=== PATIENT | female | born 1960 | race Two or more races ===

== ENCOUNTER 2025-01-14 08:14 | Inpatient (IN) | payer OTHER ==
[~2025-01-14] VITALS: Ht 154.9 cm; Wt 100.7 kg
[~2025-01-14 08:14] MED LIST: CARV6.2551 PO; DILT-29 PO; FLUO20TA42 PO; GABA-1250 PO; HYDR-4491 OR; HYDR-4798 PO; IRONTAB33 OR; LANS30TA3 PO; LEFL20TA PO; MELA3TAB27 PO; TOFA1TAB PO
[2025-01-14] MEDS ORDERED: MORPHINE SULFATE INJ 2 MG/ml SYRG IV PRN (13:00)
[2025-01-14] MEDS ORDERED: HYDROmorphone HCL 2 MG/ML VL/or syr IV PRN ×2 (13:00→14:30)
[2025-01-14] MEDS ORDERED: NITROGLYCERIN 0.4 MG SL TAB SL PRN (13:00)
[2025-01-14] MEDS: ceFAZolin 2 GM/D5W50ml 50 ML IV ONE (13:30)
[2025-01-14] MEDS: CEFEPIME 1GM/ 50ML 50 ML IV ONE (13:30)
[2025-01-14] MEDS: BUPIVACAINE HCL 0.25% P/F 10 ML VIAL ONE (14:10)
[2025-01-14 14:14] VITALS: PULSE 80; RESP 16
[2025-01-14] MEDS ORDERED: ONDANSETRON HCL 4 MG/2 ML VIAL IV ONE (14:30)
[2025-01-14] MEDS ORDERED: KETOROLAC TROMETH 30 MG/ML 1ML VIAL IV ONE (14:30)
--- NOTE | 2025-01-14 15:37 | DVH ---
C-ARM FLUOROSCOPY: PROCEDURE: ORIF left tib/fib FLUOROSCOPY TIME: 45.1 sec DAP: 1.40 mgy FINDINGS: Spot intraoperative C arm radiographs demonstrating orif left tib/fib. IMPRESSION: Please refer to surgical report for detailed findings.
[2025-01-14] MEDS: OXYCODONE W/ ACETAMINOPHEN 5/325MG TABLET PO PRN (17:49)
[2025-01-14 19:14] VITALS: PULSE 92; RESP 19; O2SAT 97
[2025-01-14] MEDS ORDERED: LANS15TA2 PO (19:18)
[2025-01-14 20:00] VITALS: PULSE 92; RESP 19; O2SAT 97
[2025-01-14 21:00] VITALS: BP 136/70; PULSE 92; RESP 19; TEMP 98.2; O2SAT 97
[2025-01-14] MEDS: oxyCODONE ER 10 MG TAB PO SCH (21:47)
[2025-01-14] MEDS: SODIUM CHLOR 0.9% PF (SALINE LOCK) 10ML VIAL/SYR IV SCH (21:51)
[2025-01-14] MEDS: LACTATED RINGER'S 1,000 ML IV SCH (21:55)
[2025-01-14] MEDS: ceFAZolin 1GM/50ML 50 ML IV SCH (23:30)
[2025-01-15] VITALS (8 sets, daily range): BP systolic 108–137; BP diastolic 63–76; PULSE 54–90; RESP 18–20; TEMP 97.9–98.5; O2SAT 93–98
[2025-01-15 07:48] LABS: Basophils # (auto) 0 10 ^3/uL (0-0.2); Basophils % (auto) 0.1 % (0.0-2.0); Eosinophils # (auto) 0 10 ^3/uL (0-0.8); Hematocrit 31.7 % (36.0-46.0); Hemoglobin 10.5 g/dL (12.2-16.2); Lymphocytes # (auto) 0.5 10 ^3/uL (0.4-5.4); Lymphocytes % (auto) 3.7 % (10.0-50.0); Mean Corpuscular Volume 84.9 fL (80.0-100.0); Monocytes # (auto) 1.1 10 ^3/uL (0-1.3); Neutrophils # (auto) 12.2 10 ^3/uL (1.6-8.6); Neutrophils % (auto) 88.2 % (37.0-80.0); Platelet Count (auto) 417 10^3/uL (140-450); Red Blood Cells 3.73 10^6/uL (4.0-5.20); Red Cell Distribution Width 13.7 % (11.8-14.3); White Blood Cell 13.8 10^3/uL (4.4-10.8)
[2025-01-15 07:59] LABS: Anion Gap 8 (5-15); Potassium 3.8 mmol/L (3.5-5.1); Sodium 137 mmol/L (136-145)
[2025-01-15 08:00] LABS: Calcium 9.5 mg/dL (8.7-10.4)
[2025-01-15 08:05] LABS: BUN/Creatinine Ratio 12.3 (10.0-20.0)
[2025-01-15 08:08] LABS: Blood Urea Nitrogen 7 mg/dL (9-23); Carbon Dioxide 31 mmol/L (20-31); Chloride 98 mmol/L (98-107); Glucose 150 mg/dL (74-106)
[2025-01-15] MEDS ORDERED: ENOXAPARIN SOD 40 MG/0.4 ML SYRINGE SC SCH (10:00)
[2025-01-15] MEDS: ENOXAPARIN SOD 40 MG/0.4 ML SYRINGE SC SCH (10:40)
--- NOTE | 2025-01-15 16:18 | DVHPN2 ---
Progress Note Date Seen: January 15, 2025 Medical Necessity Reason Pt with a Central, PICC or Fol: No Subjective Patient reports: No new complaints Objective vital signs Vital Sign Date Time Temp Pulse Resp B/P (MAP) Pulse Ox O2 Delivery O2 Flow Rate FiO2 01/15/25 12:55 98.3 75 20 122/69 (86) 97 98.3 01/15/25 08:00 Nasal Cannula* 2 28 Total Intake and Output 01/14/25 01/14/25 01/15/25 15:00 23:00 07:00 Intake Total 1200 ml 660 ml Balance 1200 ml 660 ml medications Current Medications Medications Dose Ordered Sig/Bethany Route Start Time Stop Time Status Last Admin Dose Admin Lactated Ringer's 1,000 ml @ 100 mls/hr Q10H IV 01/14/25 13:00 01/15/25 12:36 100 MLS/HR Sodium Chloride 10 ml Q8HR IV 01/14/25 14:00 01/15/25 15:10 10 ML Oxycodone/ Acetaminophen 1 tab Q4HP PRN PO 01/14/25 13:00 01/15/25 12:34 1 TAB Hydromorphone HCl 1 mg Q2HP PRN IV 01/14/25 13:00 Oxycodone HCl 10 mg Q12HR PO 01/14/25 22:00 01/15/25 10:41 10 MG Nitroglycerin 0.4 mg Q5MINP PRN SL 01/14/25 13:00 Morphine Sulfate 2 mg Q30M PRN IV 01/14/25 13:00 Enoxaparin Sodium 40 mg DAILY SC 01/15/25 10:00 01/15/25 10:40 40 MG Examination: GENERAL:Normal, MSK:Abnormal laboratory and microbiology Laboratory Tests 01/15/25 06:52 Test 01/15/25 06:52 Range/Units Serum Glucose 150 H 74-106 mg/dL Problem List/Assessment/Plan Problem List/Assessment/Plan 64 year old female who is s/p ORIF left tibia POD 1 1. Pain control 2. NWB LLE 3. Continue with cam boot 4. will begin planning for SNF as requested by patient/ prior to surgery 5. has follow up in [address] Penaloza scheduled Plan discussed with: Patient Date of Service: January 15, 2025 Billing Provider: KJ PENALOZA MD Common Visit Codes: NOT BILLABLE MARCY HERNANDEZ NP January 15, 2025 16:18
--- NOTE | 2025-01-15 16:20 | DVHDS2 ---
Discharge Summary Date of Admission January 14, 2025 at 12:59 Date of Discharge: January 14, 2025 Admitting Diagnosis left tibia fracture Wounds: aquacel dressings to remain intact until first postop visit in two weeks Labs/Diagnostic Data: Laboratory Results Test 01/15/25 06:52 White Blood Count 13.8 10^3/uL (4.4-10.8) Red Blood Count 3.73 10^6/uL (4.0-5.20) Hemoglobin 10.5 g/dL (12.2-16.2) Hematocrit 31.7 % (36.0-46.0) Mean Corpuscular Volume 84.9 fL (80.0-100.0) Mean Corpuscular Hemoglobin 28.0 pg (28.0-32.0) Mean Corpuscular Hemoglobin Concent 33.0 g/dL (32.0-36.0) Red Cell Distribution Width 13.7 % (11.8-14.3) Platelet Count 417 10^3/uL (140-450) Mean Platelet Volume 8.3 fL (6.9-10.8) Neutrophils (%) (Auto) 88.2 % (37.0-80.0) Lymphocytes (%) (Auto) 3.7 % (10.0-50.0) Monocytes (%) (Auto) 8.0 % (0.0-12.0) Eosinophils (%) (Auto) 0.0 % (0.0-7.0) Basophils (%) (Auto) 0.1 % (0.0-2.0) Neutrophils # (Auto) 12.2 10 ^3/uL (1.6-8.6) Lymphocytes # (Auto) 0.5 10 ^3/uL (0.4-5.4) Monocytes # (Auto) 1.1 10 ^3/uL (0-1.3) Eosinophils # (Auto) 0 10 ^3/uL (0-0.8) Basophils # (Auto) 0 10 ^3/uL (0-0.2) Nucleated Red Blood Cells 0.0 % Sodium Level 137 mmol/L (136-145) Potassium Level 3.8 mmol/L (3.5-5.1) Chloride Level 98 mmol/L (98-107) Carbon Dioxide Level 31 mmol/L (20-31) Anion Gap 8 (5-15) Blood Urea Nitrogen 7 mg/dL (9-23) Creatinine 0.57 mg/dL (0.550-1.02) Glomerular Filtration Rate Calc 103 mL/min (>90) BUN/Creatinine Ratio 12.3 (10.0-20.0) Serum Glucose 150 mg/dL (74-106) Calcium Level 9.5 mg/dL (8.7-10.4) Other Laboratory Tests 01/15/25 06:52 Brief Hx & Hospital Course: s/p tibial nailing Condition at Discharge: Good Final Diagnosis/Problems List Left tibia fracture Discharge Disposition: [facility] Facility Discharge Instruct/Medications Diet: Cardiac 2g Na,low cholest, See Comment Diet comment: may advance diet as tolerated Activity: See Comment Activity comment: NWChristo LLE Follow Up/Referral: Dr. Penaloza in 2 weeks Medications: resume normal medications along with pain and DVT ppx Discharge Statement: "Patient was advised to return to the ER or call 911 if any headaches, dizziness, shortness of breath, chest pain, abdominal pain, bleeding, fevers, or worsening of medical condition. Patient was counseled about treatment plan, medications, possible side effects, patientverbalized understanding. All questions were answered to the best of my ability. This discharge took greater then 30 minutes in planning, reviewing documentation, counseling the patient, and discussing with other team members." ASSESSMENT ASSESSMENT Assessment Left tibia fracture MARCY HERNANDEZ NP January 15, 2025 16:20
[2025-01-15] MEDS: CARVEDILOL 3.125 MG TAB PO ONE (21:03)
[2025-01-15] MEDS: MELATONIN 5 MG TAB PO ONE (21:03)
[2025-01-16 01:00] VITALS: BP 137/79; PULSE 88; RESP 18; TEMP 98; O2SAT 98
[2025-01-16 05:00] VITALS: BP 137/72; PULSE 98; RESP 18; TEMP 98; O2SAT 99
[2025-01-16 08:00] VITALS: RESP 19; O2SAT 97
[2025-01-16 09:00] VITALS: BP 134/59; PULSE 91; RESP 18; TEMP 98.1; O2SAT 95
--- NOTE | 2025-01-16 12:13 | DVHOP2 ---
Operative Report - 2 Report Details Date: 01/14/25 Preop Diagnosis: Left distal tibia/fibula fracture Postop Diagnosis: Left distal tibia/fibula fracture Surgeon: Greg Penaloza MD Dispatcher Clerk: Nicola WAYNE Anesthesiologist: Sesar GALLARDO Anesthesia: Regional Implant: AAP tibia nail Consent: The patient was informed of the risks and benefits of the procedure. These include but are not limited to complications of anesthesia, postoperative infection, incomplete relief of symptoms, recurrence of symptoms, damage to blood vessels, nerves and tendons, deep venous thrombosis, pulmonary embolism and possible need for repeat surgery in the future. Estimated Blood Loss: 5 cc Name of Procedure Performed Open reduction internal fixation of left tibia fracture; intraop fluoro Procedure Details Procedure Details: In the preoperative holding area, the consent was reviewed and the appropriate extremity was verified by the patient and marked with my initials. The patient was then transferred to the operating theatre. Appropriate anesthesia was induced. All bony prominences were well padded. A time out was performed verifying the side and site of surgery according to standard protocol. Preoperative antibiotics were given. Risks/benefits/options and alternatives were reviewed in depth with patient and his girlfriend. Patient and family understand this. Risks include but not limited to bleeding, infection, nerve injury, hardware failure, malunion, nonunion, chronic pain, stiffness, amputa tion, deep venous thrombosis and . A right pneumatic thigh tourniquet was placed about the patient's thigh. The lower extremity was then scrubbed, prepped and draped in the usual aseptic manner. The lower extremity was elevated and exsanguinated using an Esmarch bandage. The tourniquet was then inflated. Attention was then directed to the standard superior tibial nail technique. We made a 4 cm incision over the quadriceps tendon, paratenon was split with layer kept intact, we then split quadriceps. Using fluoro, we had correct start point with our entry pin on AP and lateral xray. We then put our starter reamer in place. We used manual reduction techniques in addition to to a stab incision at fracture site to help the reduction as she has a spiral fracture. We gentle reamed up to a 11.5. We then placed a 10 tibial AOS nail. We did two static screw and locking screw proximally fluroscopy. Screws were deemed proper length. We placd distal screw under fluoro guidance. The tourniquet was deflated and prompt hemostasis was achieved. Local injection of lidocaine and marcaine plain was injected. The area was then copiously flushed with normal sterile saline and closed in a layered fashion utilizing 2-0 Vicryl and a 3-0 nylon. Dressings were then applied consisting of Adaptic, 4 x 4s, Dylan, Kerlix and sterile Webril. Next, a multi-layer dressing consisting of cast padding and Shimon bandages were placed about to the patient's left leg distal to the patient's knee. A 5 inch posterior fiberglass splint was placed along the patient's posterior right leg with care taken to keep the foot at 90 degrees. Also, a U- shaped 4-inch fiberglass splint was placed from medial to lateral in a stirrup fashion for additional support. Additional Shimon bandages were placed over the fiberglass splint to keep them in place. Calf was soft and compressible after surgery. Condition Good Disposition Still a Patient GREG PENALOZA MD January 16, 2025 12:13
[2025-01-16 13:00] VITALS: BP 134/59; PULSE 91; RESP 18; TEMP 98.1; O2SAT 95
[2025-01-16 14:17] VITALS: BP 132/79; PULSE 88; TEMP 36.7
== END 2025-01-16 15:03 | disposition home or self-care (01) | DRG 494 ==
LOC: SUR 08:14 → OVERFLOW 12:59 → UNDOADMOB 12:59 → OVERFLOW 17:02 → WEST WING 19:04 → INTOOBSV 01-16 14:11 → OBSVTOIN 01-16 14:11 → OVERFLOW 01-16 15:03 → UNDODISIN 01-16 15:03 → UNDOADMIN 01-16 15:03
PROVIDERS: ADMIT Orthopaedic Surgery Adult Reconstructive Orthopaedic Surgery; ATTEND Orthopaedic Surgery Adult Reconstructive Orthopaedic Surgery
PROC: 0QSH04Z Reposition Left Tibia with Internal Fixation Device, Open Approach (ICD-10-PCS; principal; 2025-01-14 13:11)
DX: S82.302A Unspecified fracture of lower end of left tibia, initial encounter for closed fracture (principal); S82.832A Other fracture of upper and lower end of left fibula, initial encounter for closed fracture; W18.39XA Other fall on same level, initial encounter; Y93.89 Activity, other specified; Y92.89 Other specified places as the place of occurrence of the external cause; Y99.8 Other external cause status
CPT/HCPCS: 36415; 73590; 76000; 80048; 85025; G0378; J3490